=== PATIENT | male | born 1945 | race Caucasian/White ===

== ENCOUNTER 2019-12-31 14:52 | Inpatient (IN) | payer MEDICARE ==
[~2019-12-31] VITALS: Ht 177.8 cm; Wt 92.0 kg
[2019-12-31 15:11] LABS: BASO # 0.1 x10^3/uL (0.0-0.2); BASO % 1 % (0-3); EOS # 0.3 x10^3/uL (0.0-0.7); EOS % 3 % (0-3); HEMATOCRIT 42.6 % (39.0-53.0); HEMOGLOBIN 14.3 g/dL (13.0-17.5); LYMPH # 1.6 x10^3/uL (1.0-4.8); LYMPH % 18 % (24-48); MEAN CORPUSCULAR HEMOGLOBIN 31 pg (25-35); MEAN CORPUSCULAR HGB CONC 34 g/dL (31-37); MEAN CORPUSCULAR VOLUME 91 fL (79-100); MONO # 0.7 x10^3/uL (0.0-1.1); MONO % 9 % (0-9); NEUT % 70 % (31-73); PLATELET COUNT 311 x10^3/uL (140-400); RED BLOOD COUNT 4.69 x10^6/uL (4.30-5.70); RED CELL DISTRIBUTION WIDTH 13.2 % (11.5-14.5); WHITE BLOOD COUNT 8.6 x10^3/uL (4.0-11.0)
[2019-12-31 15:24] LABS: CALCIUM 8.9 mg/dL (8.5-10.1); CREATININE 0.8 mg/dL (0.7-1.3); POTASSIUM 4.4 mmol/L (3.5-5.1)
--- NOTE | 2019-12-31 15:40 | EKG ---
[facility] [address] [place] [address] Test Date: 2019-12-31 Test Time: 15:10:23 Pat Name: MIRTHA PATRICK Department: Room: Gender: Social Service Agency Director: : 1945 Requested By: MALIK BLANCO Order Number: [id number] Reading MD: Measurements Intervals [place] Rate: 65 P: 90 IA: 190 QRS: 0 QRSD: 82 T: 18 QT: 408 QTc: 425 Interpretive Statements SINUS RHYTHM LEFTWARD AXIS T ABNORMALITY IN INFEROLATERAL LEADS ABNORMAL ECG RI6.02 No previous ECG available for comparison
--- NOTE | 2019-12-31 15:41 | RAD ---
CHEST AP ONLY 12/31/2019 2:57 PM INDICATION: Dizzy COMPARISON: None available TECHNIQUE: Portable frontal view of the chest is provided. FINDINGS: The cardiomediastinal silhouette is within normal limits. Lungs are clear. Costophrenic angles are excluded on this radiograph. There is a nodular opacity projecting over the left infrahilar region measuring 19 mm. Additional 13 mm nodule identified in the right upper lobe. There are no significant pleural effusions. There is no pulmonary vascular congestion. No pneumothorax. No suspicious osseous abnormality. IMPRESSION: 19 mm nodular opacity projecting over the left infrahilar region is nonspecific and could represent prominent vasculature versus infrahilar lymph node. Pulmonary parenchymal nodule is a differential consideration. Additional 13 mm nodule is identified. The right upper lobe. Further characterization with CT chest is recommended. Electronically signed by: Caterina Yi MD (12/31/2019 3:38 PM) [id number]
--- NOTE | 2019-12-31 16:34 | PDOC1 ---
History and Physical Date of Admission Date of Admission DATE: 12/31/19 TIME: 16:32 Identification/Chief Complaint Chief Complaint Patient is a 74 year old MALE who presents with UNCONTROLLED HYPERTENSION AND DIZZINESS , Has known hx COPD, O2 DEPENDENT , notes he is so dizzy he is not able to safely ambulate today Past Medical History Cardiovascular: HTN, Hyperlipidemia Pulmonary: COPD Infectious disease: Other (histoplasmosis ) Family History Family History: Chronic Bronchitis, Hypertension Social History Smoke: Quit ALCOHOL: none Drugs: None Current Medications Current Medications Current Medications Lisinopril (Prinivil) 10 mg 1X ONCE PO ; Start 12/31/19 at 16:45; Stop 12/31/19 at 16:46 Allergies Allergies: Coded Allergies: phenylephrine (Verified Allergy, Unknown, 12/31/19) ROS Review of System Review of Systems: Constitutional: Denies fever or chills. [] Eyes: Denies change in visual acuity. [] HENT: Denies nasal congestion or sore throat. [] Respiratory: Denies cough or shortness of breath. [] Cardiovascular: Denies chest pain or edema. [] GI: Denies abdominal pain, nausea, vomiting, bloody stools or diarrhea. [] : Denies dysuria. [] Musculoskeletal: Denies back pain or joint pain. [] Integument: Denies rash. [] Neurologic: Denies headache, focal weakness or sensory changes. [] Endocrine: Denies polyuria or polydipsia. [] Lymphatic: Denies swollen glands. [] Psychiatric: Denies depression or anxiety. [] 14 PT ROS OTHERWISE NEG General: YES: Fatigue PSYCHOLOGICAL ROS: No: Anxiety, Behavioral Disorder, Concentration difficultie, Decreased libido, Depression, Disorientation, Hallucinations, Hostility, Irritablity, Memory difficulties, Mood Swings, Obsessive thoughts, Physical abuse, Sexual abuse, Sleep disturbances, Suicidal ideation, Other ALLERGY AND IMMUNOLOGY: No: Hives, Insect Bite Sensitivity, Itchy/Watery Eyes, Nasal Congestion, Post Nasal Drip, Seasonal Allergies, Other Hematological and Lymphatic: No: Bleeding Problems, Blood Clots, Blood Transfusions, Brusing, Night Sweats, Pallor, Swollen Lymph Nodes, Other Respiratory: No: Cough, Hemoptysis, Orthopnea, Pleuritic Pain, Shortness of breath, SOB with excertion, Sputum Changes, Stridor, Tachypnea, Wheezing, Other Gastrointestinal: No Nausea, No Vomiting, No Abdominal Pain, No Diarrhea, No Constipation, No Melena, No Hematochezia, No Other Musculoskeletal: Yes Gait Disturbance, Yes Joint Stiffness Neurological: Yes Dizziness Physical Exam Physical Exam Constitutional: Well developed, well nourished, no acute distress, non-toxic appearance. [] HENT: Normocephalic, atraumatic, bilateral external ears normal, oropharynx moist, no oral exudates, nose normal. [] Eyes: PERRLA, EOMI, conjunctiva normal, no discharge. [] Neck: Normal range of motion, no tenderness, supple, no stridor. [] Cardiovascular:Heart rate regular rhythm, no murmur [] Lungs & Thorax: Bilateral breath sounds clear to auscultation [] Abdomen: Bowel sounds normal, soft, no tenderness, no masses, no pulsatile masses. [] Skin: Warm, dry, no erythema, no rash. [] Back: No tenderness, no CVA tenderness. [] Extremities: No tenderness, no cyanosis, no clubbing, ROM intact, no edema. [] Neurologic: Alert and oriented X 3, normal motor function, normal sensory function, no focal deficits noted. [] Psychologic: Affect normal, judgement normal, mood normal. [] General: Alert, Oriented X3, Cooperative, No acute distress HEENT: Atraumatic, EOMI, Mucous membr. moist/pink Lungs: Clear to auscultation, Normal air movement Heart: RRR Breasts: Not examined Abdomen: Normal bowel sounds, Soft Rectal Exam: not examined PELVIC: Examination not indicated Extremities: No cyanosis, No edema Neuro: Normal speech, Cranial nerves 3-12 NL Psych/Mental Status: Mental status NL, Mood NL Vitals Vitals Vital Signs Date Time Temp Pulse Resp B/P (MAP) Pulse Ox O2 Delivery O2 Flow Rate FiO2 12/31/19 14:54 97.3 119 12 201/83 (122) 99 Room Air 97.3 Labs Labs Laboratory Tests Test 12/31/19 15:00 White Blood Count 8.6 x10^3/uL (4.0-11.0) Red Blood Count 4.69 x10^6/uL (4.30-5.70) Hemoglobin 14.3 g/dL (13.0-17.5) Hematocrit 42.6 % (39.0-53.0) Mean Corpuscular Volume 91 fL (79-100) Mean Corpuscular Hemoglobin 31 pg (25-35) Mean Corpuscular Hemoglobin Concent 34 g/dL (31-37) Red Cell Distribution Width 13.2 % (11.5-14.5) Platelet Count 311 x10^3/uL (140-400) Neutrophils (%) (Auto) 70 % (31-73) Lymphocytes (%) (Auto) 18 % (24-48) Monocytes (%) (Auto) 9 % (0-9) Eosinophils (%) (Auto) 3 % (0-3) Basophils (%) (Auto) 1 % (0-3) Neutrophils # (Auto) 6.0 x10^3/uL (1.8-7.7) Lymphocytes # (Auto) 1.6 x10^3/uL (1.0-4.8) Monocytes # (Auto) 0.7 x10^3/uL (0.0-1.1) Eosinophils # (Auto) 0.3 x10^3/uL (0.0-0.7) Basophils # (Auto) 0.1 x10^3/uL (0.0-0.2) Sodium Level 134 mmol/L (136-145) Potassium Level 4.4 mmol/L (3.5-5.1) Chloride Level 100 mmol/L (98-107) Carbon Dioxide Level 30 mmol/L (21-32) Anion Gap 4 (6-14) Blood Urea Nitrogen 16 mg/dL (8-26) Creatinine 0.8 mg/dL (0.7-1.3) Estimated GFR (Cockcroft-Gault) 94.0 Glucose Level 106 mg/dL (70-99) Calcium Level 8.9 mg/dL (8.5-10.1) Troponin I Quantitative < 0.017 ng/mL (0.000-0.055) EJ-Yjb-E-Type Natriuretic Peptide 287 pg/mL (0-449) Laboratory Tests Test 12/31/19 15:00 White Blood Count 8.6 x10^3/uL (4.0-11.0) Red Blood Count 4.69 x10^6/uL (4.30-5.70) Hemoglobin 14.3 g/dL (13.0-17.5) Hematocrit 42.6 % (39.0-53.0) Mean Corpuscular Volume 91 fL (79-100) Mean Corpuscular Hemoglobin 31 pg (25-35) Mean Corpuscular Hemoglobin Concent 34 g/dL (31-37) Red Cell Distribution Width 13.2 % (11.5-14.5) Platelet Count 311 x10^3/uL (140-400) Neutrophils (%) (Auto) 70 % (31-73) Lymphocytes (%) (Auto) 18 % (24-48) Monocytes (%) (Auto) 9 % (0-9) Eosinophils (%) (Auto) 3 % (0-3) Basophils (%) (Auto) 1 % (0-3) Neutrophils # (Auto) 6.0 x10^3/uL (1.8-7.7) Lymphocytes # (Auto) 1.6 x10^3/uL (1.0-4.8) Monocytes # (Auto) 0.7 x10^3/uL (0.0-1.1) Eosinophils # (Auto) 0.3 x10^3/uL (0.0-0.7) Basophils # (Auto) 0.1 x10^3/uL (0.0-0.2) Sodium Level 134 mmol/L (136-145) Potassium Level 4.4 mmol/L (3.5-5.1) Chloride Level 100 mmol/L (98-107) Carbon Dioxide Level 30 mmol/L (21-32) Anion Gap 4 (6-14) Blood Urea Nitrogen 16 mg/dL (8-26) Creatinine 0.8 mg/dL (0.7-1.3) Estimated GFR (Cockcroft-Gault) 94.0 Glucose Level 106 mg/dL (70-99) Calcium Level 8.9 mg/dL (8.5-10.1) Troponin I Quantitative < 0.017 ng/mL (0.000-0.055) YP-Ahf-T-Type Natriuretic Peptide 287 pg/mL (0-449) Images Images CHEST AP ONLY 12/31/2019 2:57 PM INDICATION: Dizzy COMPARISON: None available TECHNIQUE: Portable frontal view of the chest is provided. FINDINGS: The cardiomediastinal silhouette is within normal limits. Lungs are clear. Costophrenic angles are excluded on this radiograph. There is a nodular opacity projecting over the left infrahilar region measuring 19 mm. Additional 13 mm nodule identified in the right upper lobe. There are no significant pleural effusions. There is no pulmonary vascular congestion. No pneumothorax. No suspicious osseous abnormality. IMPRESSION: 19 mm nodular opacity projecting over the left infrahilar region is nonspecific and could represent prominent vasculature versus infrahilar lymph node. Pulmonary parenchymal nodule is a differential consideration. Additional 13 mm nodule is identified. The right upper lobe. Further characterization with CT chest is recommended. Electronically signed by: Melyssa Yi MD (12/31/2019 3:38 PM) [id number] DICTATED and SIGNED BY: MELYSSA YI MD CHEST AP ONLY 12/31/2019 2:57 PM INDICATION: Dizzy COMPARISON: None available TECHNIQUE: Portable frontal view of the chest is provided. FINDINGS: The cardiomediastinal silhouette is within normal limits. Lungs are clear. Costophrenic angles are excluded on this radiograph. There is a nodular opacity projecting over the left infrahilar region measuring 19 mm. Additional 13 mm nodule identified in the right upper lobe. There are no significant pleural effusions. There is no pulmonary vascular congestion. No pneumothorax. No suspicious osseous abnormality. IMPRESSION: 19 mm nodular opacity projecting over the left infrahilar region is nonspecific and could represent prominent vasculature versus infrahilar lymph node. Pulmonary parenchymal nodule is a differential consideration. Additional 13 mm nodule is identified. The right upper lobe. Further characterization with CT chest is recommended. Electronically signed by: Melyssa Yi MD (12/31/2019 3:38 PM) [id number] DICTATED and SIGNED BY: MELYSSA YI MD DATE: 12/31/19 1538 VTE Prophylaxis Ordered VTE Prophylaxis Devices: Yes VTE Pharmacological Prophylaxi: Yes Assessment/Plan Assessment/Plan impression 1. acute vertigo 2. hypertensive urgency 3. severe copd, STOPPED SMOKING 2017 4. hx pulmonary histoplasmosis 5. CHRONIC HYPOXIC RESP FAILURE plan admit cvc bed iv bp control, prn hydralazine CT HEAD Consider neurology consult neurochecks q 4 hrs bilateral doppler of carotids to exclude stenosis dvt prophylaxis bedrest consult cardiology lisinopril 2.5 mg po bid D/W ER DR Espinal of Admission Dx: Justifications for Admission: Justification of Admission Dx: Yes Hypertension: Symp at Rest MORENO STAFFORD MD Dec 31, 2019 16:34
[2019-12-31] MEDS ORDERED: ALBUTEROL SULFATE 2.5 MG/3 ML NEBU. NEB PRN ×2 (16:45→19:45)
[2019-12-31] MEDS ORDERED: 0.9 % SODIUM CHLORIDE 10 ML DISP.SYRIN. IV PRN (16:45)
[2019-12-31] MEDS ORDERED: LISINOPRIL 10 MG TABLET PO ONE (16:45)
[2019-12-31] MEDS ORDERED: ACETAMINOPHEN 325 MG TABLET. PO PRN (16:45)
[2019-12-31] MEDS ORDERED: ONDANSETRON PF 4 MG/2 ML VIAL. IV PRN (16:45)
[2019-12-31] MEDS ORDERED: MAG HYDROX/ALUMINUM HYD/SIMETH 30 ML ORAL.SUSP PO PRN (16:45)
[2019-12-31] MEDS ORDERED: SODIUM PHOSPHATES 19/7GM 133 ML ENEMA. PR PRN (16:45)
[2019-12-31] MEDS ORDERED: hydrALAZINE 20 MG/ML VIAL. IVP PRN (16:45)
[2019-12-31] MEDS ORDERED: cloNIDine HCL 0.1 MG TABLET PO PRN (16:45)
--- NOTE | 2019-12-31 17:50 | PHYS DOC ---
Past Medical History Past Medical History: COPD Past Surgical History: Other Additional Past Surgical Histo: BACK SURGERY Smoking Status: Former Smoker Alcohol Use: None General Adult EDM: Chief Complaint: DIZZY/LIGHT HEADED HPI: HPI: Patient is a 74 year old male who presents with [] dizziness anytime he tried to get out of bed. He states if he lays flat he feels fine. He does not have significant dizziness by moving his head. Due to his blood pressure this morning and it was elevated. He is never had a history of high blood pressure. He denies being ill recently. He does not have much to drink today but has been eating and drinking normally. He denies any new shortness of breath, chest pain, nausea, vomiting, abdominal pain, headache, neck stiffness. Review of Systems: Review of Systems: General: Denies fever, chills, sweats, fatigue Eyes: Denies drainage, blurred vision, eye redness HENT: Denies rhinorrhea, sore throat, earache Respiratory: Denies cough, shortness of breath, wheezing Cardiac: Denies edema, palpitations, chest pain GI: Denies abdominal pain, Nausea, vomiting MSK: Denies back pain, neck pain Skin: Denies rash, jaundice Neuro: Denies headache.reports dizziness Psychiatric: Denies SI/HI Heart Score: Risk Factors: Risk Factors: DM, Current or recent (<one month) smoker, HTN, HLP, family history of CAD, obesity. Risk Scores: Score 0 - 3: 2.5% MACE over next 6 weeks - Discharge Home Score 4 - 6: 20.3% MACE over next 6 weeks - Admit for Clinical Observation Score 7 - 10: 72.7% MACE over next 6 weeks - Early Invasive Strategies Current Medications: Current Medications Medications (Trade) Dose Ordered Sig/Reyna Start Time Stop Time Status Last Admin Dose Admin Acetaminophen (Tylenol) 650 mg PRN Q4HRS PRN 12/31/19 16:45 Al Hydroxide/Mg Hydroxide (Mylanta Plus Xs) 30 ml PRN DAILY PRN 12/31/19 16:45 Albuterol Sulfate (Ventolin Neb Soln) 2.5 mg PRN Q4HRS PRN 12/31/19 16:45 Clonidine HCl (Catapres) 0.1 mg PRN Q6HRS PRN 12/31/19 16:45 Enoxaparin Sodium (Lovenox 40mg Syringe) 40 mg Q24H 12/31/19 21:00 Hydralazine HCl (Apresoline Inj) 10 mg PRN Q4HRS PRN 12/31/19 16:45 Lisinopril (Prinivil) 5 mg BID 12/31/19 21:00 Ondansetron HCl (Zofran) 4 mg PRN Q4HRS PRN 12/31/19 16:45 Sodium Monofluorophosphate (Fleet Adult) 133 ml PRN DAILY PRN 12/31/19 16:45 Sodium Chloride (Normal Saline Flush) 3 ml QSHIFT PRN 12/31/19 16:45 Allergies: Allergies: Allergies Coded Allergies Type Severity Reaction Last Updated Verified phenylephrine Allergy Unknown 12/31/19 Yes Physical Exam: PE: General: Awake, alert, NAD. Well Nourished, well hydrated. Cooperative. Nasal cannula in place HEENT: Atraumatic, EOMI, PERRL, airway patent, moist oral mucosa Neck: Supple, trachea midline Respiratory: CTA bilaterally, normal effort, no wheezing/crackles CV: RRR, no murmur, cap refill <2 GI: Soft, nondistended, nontender, no masses MSK: No obvious deformities Skin: Warm, dry, intact Neuro: A&O x3, speech NL, sensory and motor grossly intact, no focal deficits, cranial nerves II through XII intact, normal cerebellar testing Psych: Normal affect, normal mood, not suicidal or homicidal Current Patient Data: Labs: Laboratory Tests Test 12/31/19 15:00 White Blood Count 8.6 x10^3/uL (4.0-11.0) Red Blood Count 4.69 x10^6/uL (4.30-5.70) Hemoglobin 14.3 g/dL (13.0-17.5) Hematocrit 42.6 % (39.0-53.0) Mean Corpuscular Volume 91 fL (79-100) Mean Corpuscular Hemoglobin 31 pg (25-35) Mean Corpuscular Hemoglobin Concent 34 g/dL (31-37) Red Cell Distribution Width 13.2 % (11.5-14.5) Platelet Count 311 x10^3/uL (140-400) Neutrophils (%) (Auto) 70 % (31-73) Lymphocytes (%) (Auto) 18 % (24-48) L Monocytes (%) (Auto) 9 % (0-9) Eosinophils (%) (Auto) 3 % (0-3) Basophils (%) (Auto) 1 % (0-3) Neutrophils # (Auto) 6.0 x10^3/uL (1.8-7.7) Lymphocytes # (Auto) 1.6 x10^3/uL (1.0-4.8) Monocytes # (Auto) 0.7 x10^3/uL (0.0-1.1) Eosinophils # (Auto) 0.3 x10^3/uL (0.0-0.7) Basophils # (Auto) 0.1 x10^3/uL (0.0-0.2) Sodium Level 134 mmol/L (136-145) L Potassium Level 4.4 mmol/L (3.5-5.1) Chloride Level 100 mmol/L (98-107) Carbon Dioxide Level 30 mmol/L (21-32) Anion Gap 4 (6-14) L Blood Urea Nitrogen 16 mg/dL (8-26) Creatinine 0.8 mg/dL (0.7-1.3) Estimated GFR (Cockcroft-Gault) 94.0 Glucose Level 106 mg/dL (70-99) H Calcium Level 8.9 mg/dL (8.5-10.1) Troponin I Quantitative < 0.017 ng/mL (0.000-0.055) YP-Gby-F-Type Natriuretic Peptide 287 pg/mL (0-449) Laboratory Tests 12/31/19 15:00 Laboratory Tests 12/31/19 15:00 Vital Signs: Vital Signs Date Time Temp Pulse Resp B/P (MAP) Pulse Ox O2 Delivery O2 Flow Rate FiO2 12/31/19 16:51 64 177/59 12/31/19 14:54 97.3 12 99 Room Air 97.3 EKG: EKG: [] Radiology/Procedures: Radiology/Procedures: [] Course & Med Decision Making: Course & Med Decision Making Pertinent Labs and Imaging studies reviewed. (See chart for details) Patient is a 74-year-old male who presents the emergency room complaining of dizziness anytime he tries to sit up or stand up. Orthostatics were positive. Patient is hypertensive and this is new for him. It appears that he has some hypertensive urgency. Neurologic exam is normal and it is unlikely that this is a posterior stroke. He will be given fluids and blood pressure medication. Patient will be admitted for further care and evaluation. Nghia Disclaimer: Nghia Disclaimer: This electronic medical record was generated, in whole or in part, using a voice recognition dictation system. Departure Departure Impression: Primary Impression: Dizziness Additional Impression: Hypertensive urgency Disposition: ADMITTED INPATIENT Condition: GOOD Referrals: IVETTE HYDE MD (PCP) Justicifation of Admission Dx: Justifications for Admission: Justification of Admission Dx: Yes MALIK BLANCO MD Dec 31, 2019 17:50
[2019-12-31 18:10] VITALS: BP 144/106
[2019-12-31] MEDS ORDERED: TIOT18CA IH (18:17)
[2019-12-31] MEDS ORDERED: BRIM5DRO3 EACHEYE (18:17)
[2019-12-31] MEDS ORDERED: FLUT1BLS9 IH (18:17)
[2019-12-31] MEDS ORDERED: ALBU2.5V8 IH (18:17)
[2019-12-31 19:00] VITALS: BP 154/64
--- NOTE | 2019-12-31 19:09 | RAD ---
CT scan of the head without contrast 12/31/2019 Clinical History: Dizziness. Technique: Unenhanced, contiguous, 5 mm axial sections were obtained through the head. One or more of the following individualized dose reduction techniques were utilized for this study: 1. Automated exposure control. 2. Adjustment of the mA and/or kV according to patient size. 3. Use of iterative reconstruction technique. Findings: There is generalized parenchymal atrophy. Areas of decreased attenuation are seen within the periventricular and subcortical white matter of both cerebral hemispheres consistent with areas of small vessel ischemic disease. No acute parenchymal abnormality is seen. No extra-axial fluid collection is noted. No skull fracture is seen. Impression: No acute intracranial abnormality is seen. Electronically signed by: Luis Mckeon MD (12/31/2019 7:06 PM) [id number]
[2019-12-31] MEDS: LISINOPRIL 5 MG TABLET. PO SCH (20:31)
[2019-12-31] MEDS ORDERED: ENOXAPARIN 40 MG/0.4 ML SYRINGE. SQ SCH (21:00)
[2019-12-31 23:00] VITALS: BP 147/64
--- NOTE | 2019-12-31 23:29 | RAD ---
INDICATION: Reason: dizziness / Spl. Instructions: / History: COMPARISON: None. TECHNIQUE: Color, grayscale and doppler ultrasound images obtained of the carotid system bilaterally. Percent stenosis is estimated using criteria that correlates with NASCET methodology. FINDINGS: Peak systolic velocities are as follows in cm/s: Right Carotid System: CCA: 67 ICA: 85 ICA/CCA Ratio 1.1 Left Carotid System: CCA: 74 ICA: 93 ICA/CCA Ratio 1.2 Left vertebral artery is obscured. Right vertebral artery is antegrade. Multifocal plaque is identified. IMPRESSION: * Multifocal plaque without hemodynamically significant stenosis of the internal carotid arteries. * The left vertebral artery is nonvisualized. Electronically signed by: Ivan Christianson MD (12/31/2019 11:26 PM) [id number]
[2020-01-01] VITALS (7 sets, daily range): BP systolic 112–168; BP diastolic 55–85
[2020-01-01] MEDS ORDERED: ALBUTEROL SULFATE 2.5 MG/3 ML NEBU. INH PRN (07:15)
--- NOTE | 2020-01-01 07:32 | PDOC ---
[employer] PROGRESS NOTE Date of Service DOS: DATE: 01/01/20 TIME: 07:32 Chief Complaint Chief Complaint Acute vertigo hypertensive urgency severe copd, STOPPED SMOKING 2018 hx pulmonary histoplasmosis CHRONIC HYPOXIC RESP FAILURE Orthostatic hypotension History of Present Illness History of Present Illness Mr Esquivel is a 74 year old MALE who presents with UNCONTROLLED HYPERTENSION AND DIZZINESS , Has known hx stage IV COPD, O2 DEPENDENT, and 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 He follows with Dr. Morejon at [facility]. He has increased his O2 needs from 2.5 L 2 years ago to 4 L over the last 6 months. He gets every [address] scans for his history of histoplasmosis. He had a biopsy last year he notes after the biopsy he was told this was stable histoplasmosis not lung cancer and did not require treatment. He and his were not aware of the histoplasma antigen test. He is positive for orthostatic hypotension here. Denies chest pain. Gets dizzy on standing. Plan: Echocardiogram IV fluid bolus challenge to treat dehydration as cause of orthostatic hypotension. Continue maximum COPD treatment is likely his etiology of dizziness is pulmonary hypertension. This is related to COPD he needs maximum COPD treatment. Likely able to discharge later today after echocardiogram and follow-up with his primary internal communications intern. He likely needs a right heart cath to further delineate his pulmonary hypertension if echo confirms elevated RVSP. Vitals/I&O Vitals/I&O: Vital Signs Date Time Temp Pulse Resp B/P (MAP) Pulse Ox O2 Delivery O2 Flow Rate FiO2 01/01/20 03:00 97.8 68 18 112/55 (74) 94 Nasal Cannula 3.0 97.8 I & O 12/31/19 12/31/19 01/01/20 15:00 23:00 07:00 Intake Total 150 ml Output Total 650 ml Balance 150 ml -650 ml Physical Exam General: Alert, Oriented X3, Cooperative, No acute distress Abdomen: Normal bowel sounds, Soft Extremities: No cyanosis, No edema Labs Labs: Laboratory Tests Test 12/31/19 15:00 White Blood Count 8.6 x10^3/uL (4.0-11.0) Red Blood Count 4.69 x10^6/uL (4.30-5.70) Hemoglobin 14.3 g/dL (13.0-17.5) Hematocrit 42.6 % (39.0-53.0) Mean Corpuscular Volume 91 fL (79-100) Mean Corpuscular Hemoglobin 31 pg (25-35) Mean Corpuscular Hemoglobin Concent 34 g/dL (31-37) Red Cell Distribution Width 13.2 % (11.5-14.5) Platelet Count 311 x10^3/uL (140-400) Neutrophils (%) (Auto) 70 % (31-73) Lymphocytes (%) (Auto) 18 % (24-48) Monocytes (%) (Auto) 9 % (0-9) Eosinophils (%) (Auto) 3 % (0-3) Basophils (%) (Auto) 1 % (0-3) Neutrophils # (Auto) 6.0 x10^3/uL (1.8-7.7) Lymphocytes # (Auto) 1.6 x10^3/uL (1.0-4.8) Monocytes # (Auto) 0.7 x10^3/uL (0.0-1.1) Eosinophils # (Auto) 0.3 x10^3/uL (0.0-0.7) Basophils # (Auto) 0.1 x10^3/uL (0.0-0.2) Sodium Level 134 mmol/L (136-145) Potassium Level 4.4 mmol/L (3.5-5.1) Chloride Level 100 mmol/L (98-107) Carbon Dioxide Level 30 mmol/L (21-32) Anion Gap 4 (6-14) Blood Urea Nitrogen 16 mg/dL (8-26) Creatinine 0.8 mg/dL (0.7-1.3) Estimated GFR (Cockcroft-Gault) 94.0 Glucose Level 106 mg/dL (70-99) Calcium Level 8.9 mg/dL (8.5-10.1) Troponin I Quantitative < 0.017 ng/mL (0.000-0.055) WM-Pnf-Y-Type Natriuretic Peptide 287 pg/mL (0-449) Assessment and Plan Assessmemt and Plan Problems Medical Problems: (1) Dizziness Status: Acute Comment Review of Relevant I have reviewed the following items shamir (where applicable) has been applied. Medications: Current Medications Medications (Trade) Dose Ordered Sig/Reyna Route PRN Reason Start Time Stop Time Status Last Admin Dose Admin Lisinopril (Prinivil) 10 mg 1X ONCE PO 12/31/19 16:45 12/31/19 16:46 DC 12/31/19 16:51 Enoxaparin Sodium (Lovenox 40mg Syringe) 40 mg Q24H SQ 12/31/19 21:00 12/31/19 20:31 Lisinopril (Prinivil) 5 mg BID PO 12/31/19 21:00 12/31/19 20:31 Justicifation of Admission Dx: Justifications for Admission: Justification of Admission Dx: Yes Hypertension: Symp at Rest CHUCKIE BOWIE MD Jan 01, 2020 07:32
[2020-01-01] MEDS ORDERED: IPRATRPIUM/ALBUTEROL 0.5/2.5MG 3 ML NEBU. NEB SCH (08:00)
[2020-01-01] MEDS ORDERED: BUDESONIDE 0.5 MG/2 ML NEBU. NEB SCH (08:00)
[2020-01-01] MEDS ORDERED: BUDESONIDE 0.5 MG/2 ML NEBU. NEB PRN (08:00)
[2020-01-01] MEDS ORDERED: IPRATRPIUM/ALBUTEROL 0.5/2.5MG 3 ML NEBU. NEB PRN (08:00)
[2020-01-01] MEDS: LISINOPRIL 5 MG TABLET. PO SCH (08:01)
--- NOTE | 2020-01-01 08:32 | PDOC2 ---
COLE JEFFERSON [employer] 01/01/20 0832: CARDIAC CONSULT DATE OF CONSULT Date of Consult DATE: 01/01/20 TIME: 08:28 REASON FOR CONSULT Reason for Consult: HTN urgency REFERRING PHYSICIAN Referring Physician: Fullbright SOURCE Source: Chart review, Patient HISTORY OF PRESENT ILLNESS HISTORY OF PRESENT ILLNESS This is a pleasant 74 yo male admitted for complains of dizziness, vertigo and high BP. Reports that he was heading to the bathroom yesterday and on the way back he felt dizzy and sat down and felt like the room was spinning. His then used her BP device to check his BP and SBP was in the 200s. He was not SOA at that time but slightly nauseated and uses O2 at 3-4 LPM at home and his O2 sat was at 97%. He has severe COPD and does not have hx of CAD and actually had a stress test within the last 2 yrs at [facility] and it was ok accdg to his spouse. He takes inhalers at home but denies any HTN meds. No recent falls injury, or any covid exposure. He did admit drinking little all day yesterday PAST MEDICAL HISTORY Cardiovascular: No pertinent hx Pulmonary: COPD CENTRAL NERVOUS SYSTEM: Vertigo GI: No pertinent hx Heme/Onc: No pertinent hx Hepatobiliary: No pertinent hx Psych: No pertinent hx Musculoskeletal: Osteoarthritis Rheumatologic: No pertinent hx Infectious disease: No pertinent hx ENT: No pertinent hx Renal/: Other (traumatic right renal injury remotely) Endocrine: No pertinent hx Dermatology: Basal cell PAST SURGICAL HISTORY Past Surgical History: Hernia Repair, Other (LMD; skin CA removal) FAMILY HISTORY Family History: Coronary Artery Disease (father in his 60s) SOCIAL HISTORY Smoke: Quit (past heavy smoker) ALCOHOL: none Drugs: None Lives: with Family CURRENT MEDICATIONS CURRENT MEDICATIONS Current Medications Medications (Trade) Dose Ordered Sig/Reyna Route PRN Reason Start Time Stop Time Status Last Admin Dose Admin Lisinopril (Prinivil) 10 mg 1X ONCE PO 12/31/19 16:45 12/31/19 16:46 DC 12/31/19 16:51 Enoxaparin Sodium (Lovenox 40mg Syringe) 40 mg Q24H SQ 12/31/19 21:00 12/31/19 20:31 Lisinopril (Prinivil) 5 mg BID PO 12/31/19 21:00 01/01/20 08:01 Budesonide (Pulmicort) 0.5 mg RTBID [facility] 01/01/20 08:00 01/01/20 07:38 DC 01/01/20 07:32 Albuterol/ Ipratropium (Duoneb) 3 ml RTQID [facility] 01/01/20 08:00 01/01/20 07:38 DC 01/01/20 07:32 ALLERGIES ALLERGIES: Coded Allergies: phenylephrine (Verified Allergy, Unknown, 12/31/19) ROS Review of System 14 point ROS evaluated with pertinent positives noted per HPI PHYSICAL EXAM General: Alert, Oriented X3, Cooperative, No acute distress HEENT: Atraumatic, Mucous membr. moist/pink Lungs: Clear to auscultation, Normal air movement Heart: Regular rate (SR with occasional PVCs), Other (distant heart sounds; no carotid bruit) Abdomen: Soft, No tenderness Extremities: No cyanosis, No edema Skin: No breakdown, No significant lesion Neuro: Normal speech, Sensation intact Psych/Mental Status: Mental status NL, Mood NL MUSCULOSKELETAL: Osteoarthritic changes both hands VITALS/I&O VITALS/I&O: Vital Signs Date Time Temp Pulse Resp B/P (MAP) Pulse Ox O2 Delivery O2 Flow Rate FiO2 01/01/20 08:01 60 143/66 01/01/20 07:33 95 Nasal Cannula 3.0 01/01/20 07:00 97.7 18 97.7 I & O 12/31/19 12/31/19 01/01/20 15:00 23:00 07:00 Intake Total 150 ml Output Total 650 ml Balance 150 ml -650 ml LABS Lab: Laboratory Tests Test 12/31/19 15:00 White Blood Count 8.6 x10^3/uL (4.0-11.0) Red Blood Count 4.69 x10^6/uL (4.30-5.70) Hemoglobin 14.3 g/dL (13.0-17.5) Hematocrit 42.6 % (39.0-53.0) Mean Corpuscular Volume 91 fL (79-100) Mean Corpuscular Hemoglobin 31 pg (25-35) Mean Corpuscular Hemoglobin Concent 34 g/dL (31-37) Red Cell Distribution Width 13.2 % (11.5-14.5) Platelet Count 311 x10^3/uL (140-400) Neutrophils (%) (Auto) 70 % (31-73) Lymphocytes (%) (Auto) 18 % (24-48) L Monocytes (%) (Auto) 9 % (0-9) Eosinophils (%) (Auto) 3 % (0-3) Basophils (%) (Auto) 1 % (0-3) Neutrophils # (Auto) 6.0 x10^3/uL (1.8-7.7) Lymphocytes # (Auto) 1.6 x10^3/uL (1.0-4.8) Monocytes # (Auto) 0.7 x10^3/uL (0.0-1.1) Eosinophils # (Auto) 0.3 x10^3/uL (0.0-0.7) Basophils # (Auto) 0.1 x10^3/uL (0.0-0.2) Sodium Level 134 mmol/L (136-145) L Potassium Level 4.4 mmol/L (3.5-5.1) Chloride Level 100 mmol/L (98-107) Carbon Dioxide Level 30 mmol/L (21-32) Anion Gap 4 (6-14) L Blood Urea Nitrogen 16 mg/dL (8-26) Creatinine 0.8 mg/dL (0.7-1.3) Estimated GFR (Cockcroft-Gault) 94.0 Glucose Level 106 mg/dL (70-99) H Calcium Level 8.9 mg/dL (8.5-10.1) Troponin I Quantitative < 0.017 ng/mL (0.000-0.055) RP-Dej-L-Type Natriuretic Peptide 287 pg/mL (0-449) Laboratory Tests 12/31/19 15:00 Laboratory Tests 12/31/19 15:00 ASSESSMENT/PLAN ASSESSMENT/PLAN 1. Dizziness: multiple contributors as noted below. No arrhythmias 2. Possible HTN encephalopathy 3. Accelerated HTN: no past hx 4. Orthostasis: possibly from poor PO hydration. Reported limited fluids yesterday 5. COPD 6. BPPV?: still has some vertigo 7. 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 Will recheck orthostatic readings. Has been started on lisinopril. [facility] LONDON HELLER MD 01/03/202056: CARDIAC CONSULT ASSESSMENT/PLAN ASSESSMENT/PLAN Late entry for 01/01/2020 Pt. seen and examined. Agree with above [employer] MANAGER note. Supportive care. [employer] Jan 01, 2020 08:32 LONDON HELLER MD Jan 03, 2020 20:57
[2020-01-01] MEDS ORDERED: BRIMONIDINE 0.2% OPHTH SOLUTION 5ML BOTTLE. OU SCH (09:00)
[2020-01-01] MEDS ORDERED: ALBUTEROL INHALER INH PRN (10:15)
[2020-01-01] MEDS ORDERED: BRIMONIDINE OU SCH (10:30)
[2020-01-01] MEDS ORDERED: SPIRIVA INH SCH (10:30)
[2020-01-01] MEDS ORDERED: FLUTICASONE/SALMETEROL 250/50 INH SCH (10:30)
--- NOTE | 2020-01-01 11:21 | NUR ---
SS following for discharge planning. SS reviewed pt chart and discussed with pt RN. Pt is from home with spouse and is currently requiring oxygen. PT/OT recommended senior living unit. SS met with pt and spouse in room to discuss discharge planning and senior living unit. Pt and pt's spouse reported that pt will return to home at discharge. SS will continue to follow for discharge planning.
[2020-01-01 11:42] LABS: ALBUMIN 3.2 g/dL (3.4-5.0); CALCIUM 8.7 mg/dL (8.5-10.1); GFR 72.6; POTASSIUM 4.5 mmol/L (3.5-5.1); TOTAL BILIRUBIN 0.6 mg/dL (0.2-1.0); TOTAL PROTEIN 6.3 g/dL (6.4-8.2)
[2020-01-01 11:46] LABS: CHOLESTEROL/HDL RATIO 2.6
[2020-01-01 11:57] LABS: BILIRUBIN,URINE NEGATIVE (NEG); CLARITY,URINE CLEAR; COLOR,URINE YELLOW; NITRITE,URINE NEGATIVE (NEG); PH,URINE 6.5 (<5.0-8.0); PROTEIN,URINE NEGATIVE (NEG-TRACE)
[2020-01-01 12:34] LABS: SQUAMOUS EPITHELIAL CELL,UR FEW /LPF
[2020-01-01 12:36] LABS: BACTERIA,URINE 0 /HPF (0-FEW); RBC,URINE OCC /HPF (0-2); WBC,URINE 0 /HPF (0-4)
--- NOTE | 2020-01-01 14:11 | CARD ---
MR#: [id number] Date of Study: 01/01/2020 Ordering Physician: COLE JEFFERSON, Referring Physician: COLE JEFFERSON, Tech: Lea Rey APPROVED REPORT EXAM: Two-dimensional and M-mode echocardiogram with Doppler and color Doppler. Other Information Quality : AverageHR: 64bpm INDICATION Pre-syncope RISK FACTORS Hypertension 2D DIMENSIONS Left Atrium(2D)3.2 (1.6-4.0cm)IVSd1.1 (0.7-1.1cm) Aortic Root(2D)3.0 (2.0-3.7cm)LVDd4.8 (3.9-5.9cm) LVOT Diameter2.1 (1.8-2.4cm)PWd1.3 (0.7-1.1cm) LVDs3.3 (2.5-4.0cm)FS (%) 30.4 % SV61.8 mlLVEF(%)57.7 (>50%) Aortic Valve AoV Peak Wilfrid.130.4cm/sAoV VTI29.7cm AO Peak GR.6.8mmHgLVOT Peak Wilfrid.102.7cm/s LVOT VTI 24.73cmAO Mean GR.4mmHg TAN (VMAX)2.08ny1NPE (VTI)2.88cm2 Mitral Valve MV E Ufusnadl02.0cm/sMV DECEL BIDY768kp MV A Maysnhdg45.1cm/sMV E Mean Gr.2mmHg MV HWK23ayQ/A Ratio0.9 MVA (PHT)3.37cm2 TDI E/Lateral E'9.1E/Medial E'10.8 Pulmonary Valve PV Peak Nekjwwlf62.1cm/sPV Peak Grad.4mmHg Tricuspid Valve TR P. Rinfynny889vo/sRAP TJCLLSPA7csVn TR Peak Gr.21spMoBDDO49iuTj Pulmonary Vein S1 Jkedxvkv10.6cm/sD2 Kodhkeus05.1cm/s PVa [id number] LEFT VENTRICLE The left ventricle is normal size. There is mild to moderate concentric left ventricular hypertrophy. The left ventricular systolic function is normal. The Ejection Fraction is 55-60%. There is normal L V segmental wall motion. Transmitral Doppler flow pattern is Grade II-pseudonormal filling dynamics. RIGHT VENTRICLE The right ventricle is borderline dilated. There is normal right ventricular wall thickness. The righ t ventricular systolic function is normal. ATRIA The left atrium size is normal. The right atrium size is normal. The interatrial septum is intact wit h no evidence for an atrial septal defect or patent foramen ovale as noted on 2-D or Doppler imaging. AORTIC VALVE The aortic valve is thickened but opens well. Doppler and Color Flow revealed no significant aortic r egurgitation. There is no significant aortic valvular stenosis. Calculated aortic valve area is 2.96 cm2 with maximum pressure gradient of 7 mmHg and mean pressure gradient of 4 mmHg. MITRAL VALVE The mitral valve is normal in structure and function. There is no evidence of mitral valve prolapse. There is no mitral valve stenosis. Doppler and Color-flow revealed trace mitral regurgitation. TRICUSPID VALVE The tricuspid valve is not well visualized. Doppler and Color Flow revealed trace tricuspid regurgita tion with an estimated PAP of 31 mmHg. There is no tricuspid valve stenosis. PULMONIC VALVE The pulmonic valve is not well visualized. Doppler and Color Flow revealed no pulmonic valvular regur gitation. GREAT VESSELS The aortic root is normal in size. The IVC is normal in size and collapses >50% with inspiration. PERICARDIAL EFFUSION There is no evidence of significant pericardial effusion. Critical Notification Critical Value: No <Conclusion> The left ventricular systolic function is normal. The Ejection Fraction is 55-60%. There is normal LV segmental wall motion. Transmitral Doppler flow pattern is Grade II-pseudonormal filling dynamics. Trace mitral regurgitation. Trace tricuspid regurgitation with an estimated PAP of 31 mmHg. There is no evidence of significant pericardial effusion. Signed by : Natan Lomeli, Electronically Approved : 01/01/2020 14:10:35
[2020-01-01] MEDS ORDERED: LISI-338 PO (15:21)
--- NOTE | 2020-01-01 15:23 | PDOC3 ---
Discharge Summary Visit Information Date of Admission: Dec 31, 2019 Date of Discharge: Jan 01, 2020 Admitting Diagnosis: HTN urgency, orthostatic hypotension Final Diagnosis Problems Medical Problems: (1) Dizziness Status: Acute (2) Hypertensive urgency Status: Acute Brief Hospital Course Allergies Allergies Coded Allergies Type Severity Reaction Last Updated Verified phenylephrine Allergy Unknown 12/31/19 Yes Vital Signs Vital Signs Date Time Temp Pulse Resp B/P (MAP) Pulse Ox O2 Delivery O2 Flow Rate FiO2 01/01/20 14:56 75 129/67 (87) 01/01/20 14:50 97.5 18 98 Nasal Cannula 3.0 97.5 Lab Results Laboratory Tests Test 12/31/19 15:00 01/01/20 11:00 01/01/20 11:20 White Blood Count 8.6 x10^3/uL (4.0-11.0) Red Blood Count 4.69 x10^6/uL (4.30-5.70) Hemoglobin 14.3 g/dL (13.0-17.5) Hematocrit 42.6 % (39.0-53.0) Mean Corpuscular Volume 91 fL (79-100) Mean Corpuscular Hemoglobin 31 pg (25-35) Mean Corpuscular Hemoglobin Concent 34 g/dL (31-37) Red Cell Distribution Width 13.2 % (11.5-14.5) Platelet Count 311 x10^3/uL (140-400) Neutrophils (%) (Auto) 70 % (31-73) Lymphocytes (%) (Auto) 18 % (24-48) Monocytes (%) (Auto) 9 % (0-9) Eosinophils (%) (Auto) 3 % (0-3) Basophils (%) (Auto) 1 % (0-3) Neutrophils # (Auto) 6.0 x10^3/uL (1.8-7.7) Lymphocytes # (Auto) 1.6 x10^3/uL (1.0-4.8) Monocytes # (Auto) 0.7 x10^3/uL (0.0-1.1) Eosinophils # (Auto) 0.3 x10^3/uL (0.0-0.7) Basophils # (Auto) 0.1 x10^3/uL (0.0-0.2) Sodium Level 134 mmol/L (136-145) 134 mmol/L (136-145) Potassium Level 4.4 mmol/L (3.5-5.1) 4.5 mmol/L (3.5-5.1) Chloride Level 100 mmol/L (98-107) 99 mmol/L (98-107) Carbon Dioxide Level 30 mmol/L (21-32) 32 mmol/L (21-32) Anion Gap 4 (6-14) 3 (6-14) Blood Urea Nitrogen 16 mg/dL (8-26) 17 mg/dL (8-26) Creatinine 0.8 mg/dL (0.7-1.3) 1.0 mg/dL (0.7-1.3) Estimated GFR (Cockcroft-Gault) 94.0 72.6 Glucose Level 106 mg/dL (70-99) 96 mg/dL (70-99) Calcium Level 8.9 mg/dL (8.5-10.1) 8.7 mg/dL (8.5-10.1) Troponin I Quantitative < 0.017 ng/mL (0.000-0.055) FN-Gts-D-Type Natriuretic Peptide 287 pg/mL (0-449) BUN/Creatinine Ratio 17 (6-20) Magnesium Level 2.2 mg/dL (1.8-2.4) Total Bilirubin 0.6 mg/dL (0.2-1.0) Aspartate Amino Transf (AST/SGOT) 12 U/L (15-37) Alanine Aminotransferase (ALT/SGPT) 13 U/L (16-63) Alkaline Phosphatase 73 U/L (46-116) Total Protein 6.3 g/dL (6.4-8.2) Albumin 3.2 g/dL (3.4-5.0) Albumin/Globulin Ratio 1.0 (1.0-1.7) Triglycerides Level 67 mg/dL (0-150) Cholesterol Level 188 mg/dL (0-200) LDL Cholesterol, Calculated 104 mg/dL (0-100) VLDL Cholesterol, Calculated 13 mg/dL (0-40) Non-HDL Cholesterol Calculated 117 mg/dL (0-129) HDL Cholesterol 71 mg/dL (40-60) Cholesterol/HDL Ratio 2.6 Thyroid Stimulating Hormone (TSH) 1.544 uIU/mL (0.358-3.74) Urine Collection Type Unknown Urine Color Yellow Urine Clarity Clear Urine pH 6.5 (<5.0-8.0) Urine Specific [place] 1.015 (1.000-1.030) Urine Protein Negative mg/dL (NEG-TRACE) Urine Glucose (UA) Negative mg/dL (NEG) Urine Ketones (Stick) 15 mg/dL (NEG) Urine Blood Negative (NEG) Urine Nitrite Negative (NEG) Urine Bilirubin Negative (NEG) Urine Urobilinogen Dipstick 1.0 mg/dL (0.2 mg/dL) Urine Leukocyte Esterase Negative (NEG) Urine RBC Occ /HPF (0-2) Urine WBC 0 /HPF (0-4) Urine Squamous Epithelial Cells Few /LPF Urine Bacteria 0 /HPF (0-FEW) Urine Mucus Slight /LPF Laboratory Tests Test 01/01/20 11:00 01/01/20 11:20 Sodium Level 134 mmol/L (136-145) Potassium Level 4.5 mmol/L (3.5-5.1) Chloride Level 99 mmol/L (98-107) Carbon Dioxide Level 32 mmol/L (21-32) Anion Gap 3 (6-14) Blood Urea Nitrogen 17 mg/dL (8-26) Creatinine 1.0 mg/dL (0.7-1.3) Estimated GFR (Cockcroft-Gault) 72.6 BUN/Creatinine Ratio 17 (6-20) Glucose Level 96 mg/dL (70-99) Calcium Level 8.7 mg/dL (8.5-10.1) Magnesium Level 2.2 mg/dL (1.8-2.4) Total Bilirubin 0.6 mg/dL (0.2-1.0) Aspartate Amino Transf (AST/SGOT) 12 U/L (15-37) Alanine Aminotransferase (ALT/SGPT) 13 U/L (16-63) Alkaline Phosphatase 73 U/L (46-116) Total Protein 6.3 g/dL (6.4-8.2) Albumin 3.2 g/dL (3.4-5.0) Albumin/Globulin Ratio 1.0 (1.0-1.7) Triglycerides Level 67 mg/dL (0-150) Cholesterol Level 188 mg/dL (0-200) LDL Cholesterol, Calculated 104 mg/dL (0-100) VLDL Cholesterol, Calculated 13 mg/dL (0-40) Non-HDL Cholesterol Calculated 117 mg/dL (0-129) HDL Cholesterol 71 mg/dL (40-60) Cholesterol/HDL Ratio 2.6 Thyroid Stimulating Hormone (TSH) 1.544 uIU/mL (0.358-3.74) Urine Collection Type Unknown Urine Color Yellow Urine Clarity Clear Urine pH 6.5 (<5.0-8.0) Urine Specific [place] 1.015 (1.000-1.030) Urine Protein Negative mg/dL (NEG-TRACE) Urine Glucose (UA) Negative mg/dL (NEG) Urine Ketones (Stick) 15 mg/dL (NEG) Urine Blood Negative (NEG) Urine Nitrite Negative (NEG) Urine Bilirubin Negative (NEG) Urine Urobilinogen Dipstick 1.0 mg/dL (0.2 mg/dL) Urine Leukocyte Esterase Negative (NEG) Urine RBC Occ /HPF (0-2) Urine WBC 0 /HPF (0-4) Urine Squamous Epithelial Cells Few /LPF Urine Bacteria 0 /HPF (0-FEW) Urine Mucus Slight /LPF Brief Hospital Course Mr Esquivel is a 74 year old MALE who presents with UNCONTROLLED HYPERTENSION AND DIZZINESS , Has known hx stage IV COPD, O2 DEPENDENT, and 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 He follows with Dr. Morejon at [facility]. He has increased his O2 needs from 2.5 L 2 years ago to 4 L over the last 6 months. He gets every [address] scans for his history of histoplasmosis. He had a biopsy last year he notes after the biopsy he was told this was stable histoplasmosis not lung cancer and did not require treatment. He and his were not aware of the histoplasma antigen test. He is positive for orthostatic hypotension here. Denies chest pain. Gets dizzy on standing. Negative felipe-hallpike, no BPPV when working with PT. Seen by cardiology in consultation - no significant pulmonary hypertension, started on lisinopril BID with improvement in BP. IV fluid bolus challenge treated dehydration as cause of orthostatic hypotension. Problem list: Acute vertigo hypertensive urgency severe copd, STOPPED SMOKING 2017 hx pulmonary histoplasmosis CHRONIC HYPOXIC RESP FAILURE Orthostatic hypotension Plan: Continue maximum COPD treatment is likely his etiology of dizziness is pulmonary hypertension. This is related to COPD he needs maximum COPD treatment. Follow-up with his primary tube pusher. Echo: The left ventricular systolic function is normal. The Ejection Fraction is 55-60%. There is normal LV segmental wall motion. Transmitral Doppler flow pattern is Grade II-pseudonormal filling dynamics. Trace mitral regurgitation. Trace tricuspid regurgitation with an estimated PAP of 31 mmHg. There is no evidence of significant pericardial effusion. Greater than 30 minutes spent on d/c home Discharge Information Condition at Discharge: Improved Follow Up: Weeks (1) Disposition/Orders: D/C to Home w/ HH Scheduled Brimonidine Tartrate (Alphagan P) 5 Ml Drops, 1 DROP EACHEYE BID for glaucoma, #15 Ref 3 (Reported) Entered as Reported by: RUSSELL NOEL on 12/31/191816 Last Action: Converted on 01/01/20706 by RUSSELL NOEL Fluticasone Propion/Salmeterol (Wixela 250-50 Inhub) 1 Each Blst.w.dev, 1 EACH IH BID for COPD, (Reported) Entered as Reported by: RUSSELL NOEL on 12/31/191816 Last Taken: Unknown Dose on 12/31/19 Last Action: Converted on 01/01/20706 by RUSSELL NOEL Lisinopril (Lisinopril) 5 Mg Tablet, 5 MG PO BID for HTN for 30 Days, #60 Prescribed by: CHUCKIE BOWIE MD on 01/01/20 1521 Tiotropium [place] (Spiriva) 18 Mcg Cap.w.dev, 2 INH IH DAILY for COPD, #1 Ref 0 (Reported) Entered as Reported by: RUSSELL NOEL on 12/31/191816 Last Action: Converted on 01/01/20706 by RUSSELL NOEL Scheduled PRN Albuterol Sulfate (Proair Hfa) 8.5 Gm Hfa.aer.ad, 2 PUFF IH PRN Q4-6HRS PRN for wheezing for 21 Days, #1 Ref 0 (Reported) Entered as Reported by: RUSSELL NOEL on 12/31/191816 Last Action: Continued on 01/01/20706 by RUSSELL NOEL Justicifation of Admission Dx: Justifications for Admission: Justification of Admission Dx: Yes Hypertension: Symp at Rest CHUCKIE BOWIE MD Jan 01, 2020 15:23
--- NOTE | 2020-01-01 16:04 | NUR ---
Discharge Note: DEYSI PATRICK Discharge instructions and discharge home medications reviewed with Patient and a copy given. All questions have been answered and understanding verbalized. The following instructions and handouts were given: Orthostatic hypotension Discontinued lines and drains: Peripheral IV intact. Patient discharged to Home or Self Care with Spouse via Wheelchair
== END 2020-01-01 16:06 | disposition home health service (06) | DRG 305 ==
LOC: ER 14:52 → 2 NORTH 16:15 → OBSVTOIN 16:37
PROVIDERS: ADMIT Family Medicine; ATTEND Family Medicine
DX: I16.0 Hypertensive urgency (principal); J96.11 Chronic respiratory failure with hypoxia; B39.9 Histoplasmosis, unspecified; E78.5 Hyperlipidemia, unspecified; E86.0 Dehydration; H81.10 Benign paroxysmal vertigo, unspecified ear; I10 Essential (primary) hypertension; I95.1 Orthostatic hypotension; J44.9 Chronic obstructive pulmonary disease, unspecified; N26.1 Atrophy of kidney (terminal); Z82.49 Family history of ischemic heart disease and other diseases of the circulatory system; Z82.5 Family history of asthma and other chronic lower respiratory diseases; Z87.891 Personal history of nicotine dependence; Z99.81 Dependence on supplemental oxygen; M19.90 Unspecified osteoarthritis, unspecified site; Z88.8 Allergy status to other drugs, medicaments and biological substances; Z79.899 Other long term (current) drug therapy
CPT/HCPCS: 36415; 70450; 71045; 80048; 80053; 80061; 81001; 83735; 83880; 84443; 84484; 85025; 93005; 93306; 93880; 94640; 94760; G0379; J1650; 97530-GO; 99285-25; G0378; J7626